=== PATIENT | female | born 1935 | race Two or more races ===

== ENCOUNTER → 2017-04-01 | Outpatient (CLI) | payer MEDICARE, OTHER ==
[~2017-04-01] MED LIST: ALEN35TA22 PO; ALLO300T2 PO
--- NOTE | 2017-04-02 15:44 | RADRPT ---
Vent Rate: 73 bpm RR Interval: 0 msec VA Interval: 148 msec QRS Duration: 68 msec QT Interval: 390 msec QTC Interval: 429 msec P-R-T [place]: 62 - 52 - 50 degrees Normal sinus rhythm Normal ECG Electronically Signed By: Yong Nick [id number]
--- NOTE | 2017-04-02 15:44 | RADRPT ---
Vent Rate: 73 bpm RR Interval: 0 msec [place] Interval: 148 msec QRS Duration: 68 msec QT Interval: 390 msec QTC Interval: 429 msec P-R-T [place]: 62 - 52 - 50 degrees Normal sinus rhythm Normal ECG Electronically Signed By: Yong Nick [id number]
--- NOTE | 2017-04-02 15:44 | RADRPT ---
Vent Rate: 73 bpm RR Interval: 0 msec [place] Interval: 148 msec QRS Duration: 68 msec QT Interval: 390 msec QTC Interval: 429 msec P-R-T [place]: 62 - 52 - 50 degrees Normal sinus rhythm Normal ECG Electronically Signed By: Yong Nick [phone]
== END | disposition home or self-care (01) ==
LOC: EKG 09:32
PROVIDERS: ATTEND Internal Medicine
DX: Z01.818 Encounter for other preprocedural examination (principal)
CPT/HCPCS: 93005